=== PATIENT | female | born 2000 | race Caucasian/White ===

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

== ENCOUNTER 2018-02-26 09:27 | Emergency (ER) | payer OTHER ==
[~2018-02-26] VITALS: Wt 60.8 kg
[~2018-02-26 09:27] MED LIST changes: +NAPROSYN500 MG PO
[2018-02-26] MEDS ORDERED: CLARITIN10 MG PO (09:42)
[2018-02-26] MEDS ORDERED: FLONASE ALLERG9.9 ML NAS (09:42)
[2018-02-26] MEDS ORDERED: PREDNISONE10 MG PO (09:42)
[2018-02-26 10:20] VITALS: BP 120/68
== END 2018-02-26 10:21 | disposition home or self-care (01) ==
LOC: ED 09:27
DX: B34.9 Viral infection, unspecified (principal); H92.03 Otalgia, bilateral; K08.89 Other specified disorders of teeth and supporting structures; R11.2 Nausea with vomiting, unspecified

== ENCOUNTER 2018-03-02 20:02 | Emergency (ER) | payer OTHER ==
[~2018-03-02] VITALS: Ht 152.4 cm; Wt 54.4 kg
[~2018-03-02 20:02] MED LIST changes: +CLARITIN10 MG PO; +FLONASE ALLERG9.9 ML NAS; +PREDNISONE10 MG PO
[2018-03-02 20:18] VITALS: BP 121/78
[2018-03-02 20:36] LABS: BILIRUBIN NEGATIVE (NEGATIVE); BLOOD NEGATIVE (NEGATIVE); CLARITY SL CLOUDY (CLEAR); COLOR YELLOW (YELLOW); GLUCOSE NEGATIVE (NEGATIVE); KETONE NEGATIVE (NEGATIVE); LEUKO ESTERASE 1+ (NEGATIVE); NITRITE NEGATIVE (NEGATIVE); PH 5.5 (5.0-9.0); SPECIFIC GRAVITY >= 1.030 (1.005-1.030); UROBILINOGEN 0.2 E.U./dl (0.2-1.0)
[2018-03-02 20:43] LABS: BACTERIA 3+; MUCOUS TRACE; RBC 0-2 rbc/hpf (0-2)
[2018-03-02] MEDS ORDERED: AUGMENTIN 875875 MG PO (20:48)
[2018-03-02] MEDS ORDERED: MYCOLOG CREAM 115 GM T (20:49)
== END 2018-03-02 20:57 | disposition home or self-care (01) ==
LOC: ED 20:02
PROVIDERS: Nurse Practitioner Family
DX: H66.93 Otitis media, unspecified, bilateral (principal); A59.8 Trichomoniasis of other sites; F17.200 Nicotine dependence, unspecified, uncomplicated; Z79.899 Other long term (current) drug therapy

== ENCOUNTER 2018-07-01 18:03 | Emergency (ER) | payer OTHER ==
[~2018-07-01] VITALS: Ht 157.4 cm; Wt 61.2 kg
--- NOTE | ~2018-07-01 | EKG ---
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
[~2018-07-01 18:03] MED LIST changes: +AUGMENTIN 875875 MG PO; +MYCOLOG CREAM 115 GM T
[2018-07-01 18:56] LABS: BASO # 0.1 10*3/uL (0.0-0.1); BASO % 0.7 % (0.0-1.0); EOS # 0.1 10*3/uL (0.0-0.4); EOS % 1.9 % (1.0-4.0); HEMATOCRIT 39.7 % (37.0-47.0); HEMOGLOBIN 12.9 g/dl (12.0-16.0); LYMPH # 1.9 10*3/uL (1.3-4.4); LYMPH % 28.2 % (27.0-41.0); MEAN CELL VOLUME 86.5 fl (81.0-99.0); MEAN CORPUSCULAR HGB 28.1 pg (27.0-31.0); MEAN CORPUSCULAR HGB CONC 32.5 g/dl (33.0-37.0); MEAN PLATELET VOLUME 10.1 fl (9.6-12.3); MONO # 0.5 10*3/uL (0.1-1.0); MONO % 6.8 % (3.0-9.0); NEUT # 4.3 10*3/uL (2.3-7.9); NEUT % 62.1 % (47.0-73.0); PLATELET COUNT AUTOMATED 359 10*3/uL (130-400); RED BLOOD COUNT 4.59 10*6/uL (4.10-5.10); RED CELL DISTRI WIDTH 13.9 % (0-14.5); WHITE BLOOD COUNT 6.9 10*3/uL (4.8-10.8)
[2018-07-01 19:12] LABS: ALBUMIN 4.1 gm/dl (3.1-4.5); ALKALINE PHOSPHATASE 65 U/L (45-117); BUN 12 mg/dl (7-24); CHLORIDE 110 mmol/L (98-107); CREATININE 0.74 mg/dL (0.55-1.02); POTASSIUM 3.8 mmol/L (3.5-5.1); SGOT/AST 8 IU/L (3-35); SGPT/ALT 16 U/L (12-78); SODIUM 141 mmol/L (136-145); TOTAL PROTEIN 7.7 gm/dL (6.4-8.2)
[2018-07-01 19:33] LABS: BILIRUBIN 1+ (NEGATIVE); BLOOD 3+ (NEGATIVE); CLARITY CLOUDY (CLEAR); COLOR RED (YELLOW); GLUCOSE NEGATIVE (NEGATIVE); KETONE TRACE (NEGATIVE); NITRITE NEGATIVE (NEGATIVE); PH 5.5 (5.0-9.0); SPECIFIC GRAVITY 1.025 (1.005-1.030); UROBILINOGEN 0.2 E.U./dl (0.2-1.0)
[2018-07-01 19:48] LABS: LEUKO ESTERASE TRACE (NEGATIVE); RBC TNTC rbc/hpf (0-2)
[2018-07-01 20:00] VITALS: BP 104/62
[2018-07-01] MEDS ORDERED: Motrin,Rufen800 MG PO (21:29)
== END 2018-07-01 21:31 | disposition home or self-care (01) ==
LOC: ED 18:03
PROVIDERS: Emergency Medicine
DX: S30.1XXA Contusion of abdominal wall, initial encounter (principal); S05.10XA Contusion of eyeball and orbital tissues, unspecified eye, initial encounter; R55 Syncope and collapse; F17.200 Nicotine dependence, unspecified, uncomplicated; Z79.899 Other long term (current) drug therapy; Y04.0XXA Assault by unarmed brawl or fight, initial encounter; Y93.89 Activity, other specified; Y92.89 Other specified places as the place of occurrence of the external cause; Y99.9 Unspecified external cause status

== ENCOUNTER 2018-08-16 05:14 | Emergency (ER) | payer OTHER ==
[~2018-08-16] VITALS: Ht 157.4 cm; Wt 60.8 kg
--- NOTE | ~2018-08-16 | EKG ---
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
[~2018-08-16 05:14] MED LIST changes: +Motrin,Rufen800 MG PO
[2018-08-16 05:35] LABS: BASO % 0.5 % (0.0-1.0); EOS # 0.3 10*3/uL (0.0-0.4); EOS % 3.5 % (1.0-4.0); HEMATOCRIT 40.5 % (37.0-47.0); HEMOGLOBIN 12.9 g/dl (12.0-16.0); LYMPH # 2.2 10*3/uL (1.3-4.4); LYMPH % 25.5 % (27.0-41.0); MEAN CELL VOLUME 87.1 fl (81.0-99.0); MEAN CORPUSCULAR HGB 27.7 pg (27.0-31.0); MEAN CORPUSCULAR HGB CONC 31.9 g/dl (33.0-37.0); MEAN PLATELET VOLUME 9.5 fl (9.6-12.3); MONO # 0.6 10*3/uL (0.1-1.0); MONO % 6.9 % (3.0-9.0); NEUT # 5.4 10*3/uL (2.3-7.9); NEUT % 63.2 % (47.0-73.0); PLATELET COUNT AUTOMATED 418 10*3/uL (130-400); RED BLOOD COUNT 4.65 10*6/uL (4.10-5.10); RED CELL DISTRI WIDTH 13.7 % (0-14.5); WHITE BLOOD COUNT 8.6 10*3/uL (4.8-10.8)
[2018-08-16 05:43] LABS: ACT PARTIAL THROMBO TIME 24.7 SECONDS (20.8-31.5); INTERNATIONAL NORM RATIO 1.1 (2.0-3.5)
[2018-08-16 06:00] LABS: ALBUMIN 3.7 gm/dl (3.1-4.5); ALKALINE PHOSPHATASE 72 U/L (45-117); BUN 11 mg/dl (7-24); CHLORIDE 110 mmol/L (98-107); CREATININE 0.69 mg/dL (0.55-1.02); POTASSIUM 3.5 mmol/L (3.5-5.1); SGOT/AST 7 IU/L (3-35); SGPT/ALT 19 U/L (12-78); SODIUM 141 mmol/L (136-145); TOTAL PROTEIN 7.7 gm/dL (6.4-8.2)
[2018-08-16 06:03] LABS: TROPONIN I < 0.015 ng/ml (<0.045)
[2018-08-16 06:24] VITALS: BP 124/60
[2018-08-16] MEDS ORDERED: NAPROSYN500 MG PO (06:31)
[2018-08-16] MEDS ORDERED: CYCLOBENZAPRINE10 MG PO (06:31)
[2018-10-18] MEDS ORDERED: ZYRTEC10 MG PO (19:54)
[2018-10-18] MEDS ORDERED: AMOXICILLIN500 M2 PO (19:54)
[2018-10-18] MEDS ORDERED: FLONASE ALLERG9.9 ML NAS (19:54)
== END 2018-08-16 06:45 | disposition home or self-care (01) ==
LOC: ED 05:14
PROVIDERS: Student in an Organized Health Care Education/Training Program
DX: R07.89 Other chest pain (principal); M54.5 Low back pain; F17.200 Nicotine dependence, unspecified, uncomplicated

== ENCOUNTER 2018-09-22 02:11 | Emergency (ER) | payer OTHER ==
[~2018-09-22] VITALS: Ht 157.4 cm; Wt 61.2 kg
[~2018-09-22 02:11] MED LIST changes: +CYCLOBENZAPRINE10 MG PO
[2018-09-22 02:18] VITALS: BP 106/46
[2018-09-22 02:41] LABS: BASO # 0.1 10*3/uL (0.0-0.1); BASO % 0.8 % (0.0-1.0); EOS # 0.5 10*3/uL (0.0-0.4); EOS % 5.4 % (1.0-4.0); HEMATOCRIT 43.4 % (37.0-47.0); HEMOGLOBIN 14.3 g/dl (12.0-16.0); LYMPH # 2.6 10*3/uL (1.3-4.4); LYMPH % 27.3 % (27.0-41.0); MEAN CELL VOLUME 86.6 fl (81.0-99.0); MEAN CORPUSCULAR HGB 28.5 pg (27.0-31.0); MEAN CORPUSCULAR HGB CONC 32.9 g/dl (33.0-37.0); MEAN PLATELET VOLUME 9.7 fl (9.6-12.3); MONO # 0.5 10*3/uL (0.1-1.0); MONO % 5.3 % (3.0-9.0); NEUT # 5.9 10*3/uL (2.3-7.9); PLATELET COUNT AUTOMATED 392 10*3/uL (130-400); RED BLOOD COUNT 5.01 10*6/uL (4.10-5.10); RED CELL DISTRI WIDTH 13.3 % (0-14.5); WHITE BLOOD COUNT 9.7 10*3/uL (4.8-10.8)
[2018-09-22 02:46] LABS: BILIRUBIN NEGATIVE (NEGATIVE); BLOOD 2+ (NEGATIVE); CLARITY CLOUDY (CLEAR); COLOR YELLOW (YELLOW); GLUCOSE NEGATIVE (NEGATIVE); KETONE NEGATIVE (NEGATIVE); LEUKO ESTERASE 1+ (NEGATIVE); NITRITE NEGATIVE (NEGATIVE); PH 6.5 (5.0-9.0); UROBILINOGEN 0.2 E.U./dl (0.2-1.0)
[2018-09-22 02:55] LABS: EPITHELIAL CELLS 45-50
[2018-09-22 02:56] LABS: ALBUMIN 4.2 gm/dl (3.1-4.5); ALKALINE PHOSPHATASE 68 U/L (45-117); BUN 18 mg/dl (7-24); CHLORIDE 107 mmol/L (98-107); CREATININE 0.81 mg/dL (0.55-1.02); LIPASE 100 U/L (73-393); POTASSIUM 3.8 mmol/L (3.5-5.1); SGOT/AST 12 IU/L (3-35); SGPT/ALT 21 U/L (12-78); SODIUM 137 mmol/L (136-145); TOTAL PROTEIN 8.2 gm/dL (6.4-8.2)
[2018-09-22 02:56] LABS: BACTERIA TRACE; RBC 41-50 rbc/hpf (0-2); WBC 21-30 wbc/hpf (0-5)
[2018-09-22 02:58] LABS: B-hCG (QUALITATIVE) NEGATIVE (NEGATIVE)
[2018-09-22] MEDS ORDERED: KEFLEX500 M1 PO (03:39)
[2018-09-22] MEDS ORDERED: PYRIDIUM200 M1 PO (03:39)
[2018-09-22] MEDS ORDERED: DIFLUCAN150 MG PO (03:39)
[2018-10-18] MEDS ORDERED: ZYRTEC10 MG PO (19:54)
[2018-10-18] MEDS ORDERED: FLONASE ALLERG9.9 ML NAS (19:54)
[2018-10-18] MEDS ORDERED: AMOXICILLIN500 M2 PO (19:54)
== END 2018-09-22 03:57 | disposition home or self-care (01) ==
LOC: ED 02:11
PROVIDERS: Emergency Medicine Emergency Medical Services
DX: N30.90 Cystitis, unspecified without hematuria (principal); R30.0 Dysuria; F17.200 Nicotine dependence, unspecified, uncomplicated

== ENCOUNTER 2018-11-27 22:29 | Emergency (ER) | payer OTHER ==
[~2018-11-27] VITALS: Ht 157.4 cm; Wt 61.2 kg
--- NOTE | ~2018-11-27 | EKG ---
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
[~2018-11-27 22:29] MED LIST changes: +AMOXICILLIN500 M2 PO; +DIFLUCAN150 MG PO; +KEFLEX500 M1 PO; +PYRIDIUM200 M1 PO; +ZYRTEC10 MG PO
[2018-11-27 23:01] VITALS: BP 109/67
== END 2018-11-28 00:27 | disposition home or self-care (01) ==
LOC: ED 22:29
DX: F41.1 Generalized anxiety disorder (principal); R07.89 Other chest pain; F32.9 Major depressive disorder, single episode, unspecified; F17.200 Nicotine dependence, unspecified, uncomplicated; Z79.899 Other long term (current) drug therapy; Z79.2 Long term (current) use of antibiotics

== ENCOUNTER 2018-12-05 19:15 | Emergency (ER) | payer OTHER ==
[~2018-12-05] VITALS: Ht 154.9 cm; Wt 61.2 kg
[2018-12-05 19:19] VITALS: BP 119/73
== END 2018-12-05 20:04 | disposition left against medical advice (07) ==
LOC: ED 19:15
DX: R10.30 Lower abdominal pain, unspecified (principal); M25.572 Pain in left ankle and joints of left foot; Z53.21 Procedure and treatment not carried out due to patient leaving prior to being seen by health care provider; W01.0XXA Fall on same level from slipping, tripping and stumbling without subsequent striking against object, initial encounter; Y93.01 Activity, walking, marching and hiking; Y92.89 Other specified places as the place of occurrence of the external cause; Y99.8 Other external cause status

== ENCOUNTER 2018-12-18 22:43 | Emergency (ER) | payer OTHER ==
[~2018-12-18] VITALS: Ht 157.4 cm; Wt 56.2 kg
[2018-12-18 22:44] VITALS: BP 103/60
[2018-12-18 23:33] LABS: BILIRUBIN 1+ (NEGATIVE); BLOOD NEGATIVE (NEGATIVE); CLARITY SL CLOUDY (CLEAR); COLOR YELLOW (YELLOW); GLUCOSE NEGATIVE (NEGATIVE); KETONE TRACE (NEGATIVE); LEUKO ESTERASE NEGATIVE (NEGATIVE); NITRITE NEGATIVE (NEGATIVE); SPECIFIC GRAVITY >= 1.030 (1.005-1.030); UROBILINOGEN 0.2 E.U./dl (0.2-1.0)
[2018-12-18 23:38] LABS: EPITHELIAL CELLS 15-20
== END 2018-12-19 03:02 | disposition home or self-care (01) ==
LOC: ED 22:43
PROVIDERS: Nurse Practitioner Family
DX: S30.0XXA Contusion of lower back and pelvis, initial encounter (principal); S40.812A Abrasion of left upper arm, initial encounter; S40.811A Abrasion of right upper arm, initial encounter; Y08.89XA Assault by other specified means, initial encounter; Y93.89 Activity, other specified; Y92.89 Other specified places as the place of occurrence of the external cause; Y99.8 Other external cause status

== ENCOUNTER 2019-05-23 20:26 | Emergency (ER) | payer OTHER ==
[~2019-05-23] VITALS: Ht 154.9 cm; Wt 55.8 kg
[2019-05-23 20:28] VITALS: BP 125/73
[2019-05-23 21:12] LABS: BASO % 0.3 % (0.0-1.0); EOS # 0.3 10*3/uL (0.0-0.4); EOS % 1.7 % (1.0-4.0); HEMATOCRIT 46.8 % (37.0-47.0); HEMOGLOBIN 15.2 g/dl (12.0-16.0); LYMPH # 2.6 10*3/uL (1.3-4.4); LYMPH % 17.5 % (27.0-41.0); MEAN CORPUSCULAR HGB 28.9 pg (27.0-31.0); MEAN CORPUSCULAR HGB CONC 32.5 g/dl (33.0-37.0); MEAN PLATELET VOLUME 9.7 fl (9.6-12.3); MONO # 0.8 10*3/uL (0.1-1.0); MONO % 5.4 % (3.0-9.0); NEUT # 11.1 10*3/uL (2.3-7.9); NEUT % 74.8 % (47.0-73.0); PLATELET COUNT AUTOMATED 441 10*3/uL (130-400); RED BLOOD COUNT 5.26 10*6/uL (4.10-5.10); RED CELL DISTRI WIDTH 13.9 % (0-14.5); WHITE BLOOD COUNT 14.9 10*3/uL (4.8-10.8)
[2019-05-23 21:13] LABS: BILIRUBIN 1+ (NEGATIVE); BLOOD 3+ (NEGATIVE); CLARITY SL CLOUDY (CLEAR); COLOR YELLOW (YELLOW); GLUCOSE NEGATIVE (NEGATIVE); KETONE TRACE (NEGATIVE); LEUKO ESTERASE NEGATIVE (NEGATIVE); NITRITE NEGATIVE (NEGATIVE); SPECIFIC GRAVITY >= 1.030 (1.005-1.030); UROBILINOGEN 0.2 E.U./dl (0.2-1.0)
[2019-05-23 21:19] LABS: BACTERIA TRACE; MUCOUS TRACE; RBC 16-20 rbc/hpf (0-2); WBC 0-2 wbc/hpf (0-5)
[2019-05-23 21:30] LABS: ALBUMIN 4.4 gm/dl (3.1-4.5); ALKALINE PHOSPHATASE 82 U/L (45-117); BUN 14 mg/dl (7-24); CHLORIDE 106 mmol/L (98-107); CREATININE 0.72 mg/dL (0.55-1.02); POTASSIUM 3.5 mmol/L (3.5-5.1); SGOT/AST 14 IU/L (3-35); SGPT/ALT 25 U/L (12-78); SODIUM 139 mmol/L (136-145)
== END 2019-05-23 22:01 ==
LOC: ED 20:26
PROVIDERS: Emergency Medicine
DX: N92.0 Excessive and frequent menstruation with regular cycle (principal); F17.200 Nicotine dependence, unspecified, uncomplicated

== ENCOUNTER 2019-06-08 02:20 | Inpatient (IN) | payer OTHER ==
[2019-06-08] VITALS (8 sets, daily range): BP systolic 102–116; BP diastolic 52–69
[~2019-06-08] VITALS: Ht 157.4 cm; Wt 58.1 kg
[2019-06-08 02:57] LABS: BASO # 0.1 10*3/uL (0.0-0.1); BASO % 0.3 % (0.0-1.0); EOS # 0.3 10*3/uL (0.0-0.4); EOS % 1.7 % (1.0-4.0); HEMATOCRIT 39.5 % (37.0-47.0); HEMOGLOBIN 12.6 g/dl (12.0-16.0); LYMPH # 1.7 10*3/uL (1.3-4.4); LYMPH % 11.5 % (27.0-41.0); MEAN CELL VOLUME 90.2 fl (81.0-99.0); MEAN CORPUSCULAR HGB 28.8 pg (27.0-31.0); MEAN CORPUSCULAR HGB CONC 31.9 g/dl (33.0-37.0); MEAN PLATELET VOLUME 9.5 fl (9.6-12.3); MONO # 1.2 10*3/uL (0.1-1.0); MONO % 7.9 % (3.0-9.0); NEUT # 11.4 10*3/uL (2.3-7.9); NEUT % 78.1 % (47.0-73.0); PLATELET COUNT AUTOMATED 341 10*3/uL (130-400); RED BLOOD COUNT 4.38 10*6/uL (4.10-5.10); RED CELL DISTRI WIDTH 13.8 % (0-14.5); WHITE BLOOD COUNT 14.6 10*3/uL (4.8-10.8)
[2019-06-08 03:13] LABS: ALBUMIN 3.7 gm/dl (3.1-4.5); ALKALINE PHOSPHATASE 72 U/L (45-117); BUN 11 mg/dl (7-24); CHLORIDE 105 mmol/L (98-107); CREATININE 0.83 mg/dL (0.55-1.02); LIPASE 63 U/L (73-393); POTASSIUM 3.6 mmol/L (3.5-5.1); SGOT/AST 14 IU/L (3-35); SGPT/ALT 24 U/L (12-78); SODIUM 137 mmol/L (136-145); TOTAL PROTEIN 7.7 gm/dL (6.4-8.2)
[2019-06-08 03:17] LABS: BETA-HCG, QUANT < 1.0 mIU/mL (1-3)
[2019-06-08 03:22] LABS: BILIRUBIN NEGATIVE (NEGATIVE); BLOOD 2+ (NEGATIVE); CLARITY SL CLOUDY (CLEAR); COLOR YELLOW (YELLOW); GLUCOSE NEGATIVE (NEGATIVE); KETONE NEGATIVE (NEGATIVE); LEUKO ESTERASE 2+ (NEGATIVE); NITRITE NEGATIVE (NEGATIVE); SPECIFIC GRAVITY 1.015 (1.005-1.030); UROBILINOGEN 0.2 E.U./dl (0.2-1.0)
[2019-06-08 03:49] LABS: BACTERIA 1+; RBC 31-40 rbc/hpf (0-2); WBC 41-50 wbc/hpf (0-5)
--- NOTE | 2019-06-08 06:01 | NUR ---
A 19, admitted to , under the services of ALISON Meyers DO with a diagnosis of UTI. Chief complaint is LLQ PAIN. Patient arrived via wheel chair from ER. Monitor applied. Initial assessment completed. Vital signs taken and recorded. ALISON MEYERS DO notified of admission to the unit. Orders received. See assessment for past medical history, medications and allergies. Patient and/or family oriented to unit. [facility]. Clothing/patient valuable form completed. SHIRA SOW
--- NOTE | 2019-06-08 06:11 | NUR ---
PATIENT RESTING CALMLY IN BED PLAYING ON CELLPHONE. DENIES ANY HOME MEDICATIONS. HAD TO REPEAT QUESTIONS MULTIPLE TIMES TO PATIENT DUE TO PLAYING ON CELLPHONE. NO S/S OF PAIN.
--- NOTE | 2019-06-08 06:26 | NUR ---
MEDICATED WITH PRN NORCO FOR C/O ABD PAIN. STATES "IF I DO NOT GET PAIN MEDS SOON I WILL START SCREAMING". RATES PAIN 6/10 ON A 0/10 PAIN SCALE
--- NOTE | 2019-06-08 08:44 | NUR ---
PT RESTING IN BED. EYES CLOSED. NO DISTRESS NOTED. WILL MONITOR
--- NOTE | 2019-06-08 11:24 | NUR ---
[employer] in to talk to patient. Patient states lives at home with family. There are few steps in the home. Physician: none Pharmacy: [facility] Home health services: none Patient's level of ADLs: INDEPENDENT Patient has working utilities: all working DME: none Follow-up physician's appointment after d/c: will be made by hospitalist nurse director upon discharge Does patient want to access PORTAL?: no Discharge plan discussed with patient, friend present, patient lives at home, is independent in adls and ambualtion, patient states she will be going home when able and denies any home needs. CASH ADAIR
--- NOTE | 2019-06-08 11:51 | NUR ---
PT REQUESTED AND GIVEN NORCO FOR C.O LEFT SIDE ABD PAIN. PT RATES PAIN 06/08 WILL MONITOR
--- NOTE | 2019-06-08 19:40 | NUR ---
PATIENT REQUESTED AND WAS MEDICATED WITH NORCO PER PRN ORDER FOR C/O ABDOMINAL PAIN. RATED PAIN A 10/10 WITH 10 BEING THE WORST. SEE EMAR. REINFORCED USE OF CALL LIGHT.
--- NOTE | 2019-06-08 21:00 | NUR ---
PATIENT STATING SHE WANTS TO SIGN OUT AMA. DR. TINAJERO CALLED. WILL COME UP TO SPEAK TO PATIENT. NORCO GIVEN EARLIER EFFECTIVE FOR PAIN.
--- NOTE | 2019-06-08 21:15 | NUR ---
DR. TINAJERO CAME TO FLOOR TO SPEAK TO PATIENT. STATED SHE IS AWARE THAT SHE IS SIGNING OUT OUT AMA. PERCY REMOVED.
--- NOTE | 2019-06-08 21:30 | NUR ---
PATIENT SIGNED OUT AMA. AMBULATED OFF FLOOR WITH FRIEND
== END 2019-06-08 21:30 | disposition left against medical advice (07) | DRG 872 ==
LOC: ED 02:20 → EDHOLD 05:24 → 4E 05:53
PROVIDERS: Emergency Medicine Emergency Medical Services; ADMIT Emergency Medicine
DX: A41.9 Sepsis, unspecified organism (principal); N30.01 Acute cystitis with hematuria; R10.12 Left upper quadrant pain; R73.9 Hyperglycemia, unspecified; F41.1 Generalized anxiety disorder; Z53.21 Procedure and treatment not carried out due to patient leaving prior to being seen by health care provider; F17.200 Nicotine dependence, unspecified, uncomplicated; Z79.899 Other long term (current) drug therapy

== ENCOUNTER 2019-08-04 15:22 | Emergency (ER) | payer OTHER ==
[~2019-08-04] VITALS: Ht 154.9 cm; Wt 54.4 kg
[2019-08-04 15:26] VITALS: BP 107/71
[2019-08-04 16:59] LABS: BASO % 0.5 % (0.0-1.0); EOS # 0.3 10*3/uL (0.0-0.4); EOS % 3.2 % (1.0-4.0); HEMATOCRIT 40.4 % (37.0-47.0); HEMOGLOBIN 13.1 g/dl (12.0-16.0); LYMPH # 2.2 10*3/uL (1.3-4.4); LYMPH % 26.1 % (27.0-41.0); MEAN CORPUSCULAR HGB 29.2 pg (27.0-31.0); MEAN CORPUSCULAR HGB CONC 32.4 g/dl (33.0-37.0); MEAN PLATELET VOLUME 9.7 fl (9.6-12.3); MONO # 0.5 10*3/uL (0.1-1.0); MONO % 5.6 % (3.0-9.0); NEUT # 5.5 10*3/uL (2.3-7.9); NEUT % 64.2 % (47.0-73.0); PLATELET COUNT AUTOMATED 365 10*3/uL (130-400); RED BLOOD COUNT 4.49 10*6/uL (4.10-5.10); RED CELL DISTRI WIDTH 14.3 % (0-14.5); WHITE BLOOD COUNT 8.6 10*3/uL (4.8-10.8)
[2019-08-04 17:10] LABS: BILIRUBIN NEGATIVE (NEGATIVE); BLOOD NEGATIVE (NEGATIVE); CLARITY SL CLOUDY (CLEAR); COLOR YELLOW (YELLOW); GLUCOSE NEGATIVE (NEGATIVE); KETONE NEGATIVE (NEGATIVE); LEUKO ESTERASE 2+ (NEGATIVE); NITRITE NEGATIVE (NEGATIVE); SPECIFIC GRAVITY 1.025 (1.005-1.030); UROBILINOGEN 0.2 E.U./dl (0.2-1.0)
[2019-08-04 17:18] LABS: ALBUMIN 3.9 gm/dl (3.1-4.5); ALKALINE PHOSPHATASE 68 U/L (45-117); BUN 11 mg/dl (7-24); CHLORIDE 108 mmol/L (98-107); CREATININE 0.63 mg/dL (0.55-1.02); LIPASE 65 U/L (73-393); SGOT/AST 12 IU/L (3-35); SGPT/ALT 18 U/L (12-78); SODIUM 137 mmol/L (136-145); TOTAL PROTEIN 7.7 gm/dL (6.4-8.2)
[2019-08-04 17:24] LABS: BACTERIA 1+; MUCOUS 2+
[2019-08-04] MEDS ORDERED: PRILOSEC20 M1 PO (19:17)
== END 2019-08-04 19:45 | disposition home or self-care (01) ==
LOC: ED 15:22
PROVIDERS: Nurse Practitioner Family
DX: K29.70 Gastritis, unspecified, without bleeding (principal); F17.200 Nicotine dependence, unspecified, uncomplicated

== ENCOUNTER 2019-08-18 14:57 | Emergency (ER) | payer OTHER ==
[2019-08-18 14:57] VITALS: BP 127/100
[~2019-08-18 14:57] MED LIST changes: +PRILOSEC20 M1 PO
[2019-08-18 15:20] LABS: BILIRUBIN NEGATIVE (NEGATIVE); BLOOD NEGATIVE (NEGATIVE); CLARITY SL CLOUDY (CLEAR); COLOR YELLOW (YELLOW); GLUCOSE NEGATIVE (NEGATIVE); KETONE NEGATIVE (NEGATIVE); LEUKO ESTERASE 2+ (NEGATIVE); NITRITE NEGATIVE (NEGATIVE); PH 5.5 (5.0-9.0); SPECIFIC GRAVITY 1.025 (1.005-1.030); UROBILINOGEN 0.2 E.U./dl (0.2-1.0)
[2019-08-18 15:51] LABS: BACTERIA 3+; EPITHELIAL CELLS 20-30
[2019-08-18 15:55] LABS: BASO # 0.1 10*3/uL (0.0-0.1); BASO % 0.9 % (0.0-1.0); EOS # 0.3 10*3/uL (0.0-0.4); EOS % 3.5 % (1.0-4.0); HEMATOCRIT 42.9 % (37.0-47.0); HEMOGLOBIN 14.1 g/dl (12.0-16.0); LYMPH # 2.3 10*3/uL (1.3-4.4); LYMPH % 32.3 % (27.0-41.0); MEAN CELL VOLUME 89.2 fl (81.0-99.0); MEAN CORPUSCULAR HGB 29.3 pg (27.0-31.0); MEAN CORPUSCULAR HGB CONC 32.9 g/dl (33.0-37.0); MEAN PLATELET VOLUME 9.9 fl (9.6-12.3); MONO # 0.5 10*3/uL (0.1-1.0); MONO % 6.8 % (3.0-9.0); NEUT % 56.1 % (47.0-73.0); PLATELET COUNT AUTOMATED 380 10*3/uL (130-400); RED BLOOD COUNT 4.81 10*6/uL (4.10-5.10); RED CELL DISTRI WIDTH 13.8 % (0-14.5); WHITE BLOOD COUNT 7.1 10*3/uL (4.8-10.8)
[2019-08-18 16:16] LABS: ALBUMIN 4.2 gm/dl (3.1-4.5); ALKALINE PHOSPHATASE 65 U/L (45-117); BUN 16 mg/dl (7-24); CHLORIDE 106 mmol/L (98-107); CREATININE 0.67 mg/dL (0.55-1.02); POTASSIUM 3.6 mmol/L (3.5-5.1); SGOT/AST 9 IU/L (3-35); SGPT/ALT 18 U/L (12-78); SODIUM 135 mmol/L (136-145); TOTAL PROTEIN 8.3 gm/dL (6.4-8.2)
[2019-08-18] MEDS ORDERED: DOXYCYCLINE100 M3 PO (18:10)
== END 2019-08-18 18:39 | disposition home or self-care (01) ==
LOC: ED 14:57
PROVIDERS: Physician Assistant
DX: K52.9 Noninfective gastroenteritis and colitis, unspecified (principal); N39.0 Urinary tract infection, site not specified

== ENCOUNTER 2020-07-15 15:57 | Emergency (ER) | payer OTHER ==
[~2020-07-15] VITALS: Wt 56.7 kg
[~2020-07-15 15:57] MED LIST changes: +DOXYCYCLINE100 M3 PO
[2020-07-15 16:02] VITALS: BP 112/66
[2020-07-15 16:33] LABS: BILIRUBIN NEGATIVE (NEGATIVE); CLARITY CLEAR (CLEAR); COLOR YELLOW (YELLOW); GLUCOSE NEGATIVE (NEGATIVE); KETONE NEGATIVE (NEGATIVE)
[2020-07-15 16:34] LABS: BLOOD NEGATIVE (NEGATIVE); LEUKO ESTERASE 1+ (NEGATIVE); NITRITE NEGATIVE (NEGATIVE); UROBILINOGEN 0.2 E.U./dl (0.2-1.0)
[2020-07-15 16:38] LABS: BACTERIA 1+; RBC 0-2 rbc/hpf (0-2); WBC 16-20 wbc/hpf (0-5)
[2020-07-15] MEDS ORDERED: MACROBID100 M1 PO (18:15)
[2020-07-15] MEDS ORDERED: PRENATAL TABLE1 EAC2 PO (18:15)
== END 2020-07-15 19:11 | disposition home or self-care (01) ==
LOC: ED 15:57
PROVIDERS: Emergency Medicine
DX: O23.91 Unspecified genitourinary tract infection in pregnancy, first trimester (principal); Z3A.01 Less than 8 weeks gestation of pregnancy

== ENCOUNTER → 2020-09-03 | Outpatient (CLI) | payer OTHER ==
[~2020-09-03] MED LIST changes: +PRENATAL TABLE1 EAC2 PO
[2020-09-04 14:08] LABS: ANTICARDIOLIPIN AB, IGG, QN <9 GPL U/mL (0-14); ANTICARDIOLIPIN AB, IGM, QN 12 MPL U/mL (0-12)
[2020-09-05 06:07] LABS: ANTI-THROMBIN III ACTIVITY 104 % (75-135); PROTEIN C, ACTIVITY 98 % (73-180); PROTEIN S - FUNCTIONAL 30 % (63-140)
== END | disposition home or self-care (01) ==
LOC: LAB 13:48
PROVIDERS: ATTEND Nurse Practitioner Women's Health
DX: O26.22 Pregnancy care for patient with recurrent pregnancy loss, second trimester (principal); Z3A.13 13 weeks gestation of pregnancy

== ENCOUNTER 2020-09-24 18:19 | Emergency (ER) | payer OTHER ==
[~2020-09-24] VITALS: Ht 154.9 cm; Wt 56.7 kg
[2020-09-24 18:44] VITALS: BP 108/61
== END 2020-09-24 21:00 | disposition home or self-care (01) ==
LOC: ED 18:19
DX: B34.9 Viral infection, unspecified (principal); Z87.891 Personal history of nicotine dependence

== ENCOUNTER 2020-09-27 20:01 | Emergency (ER) | payer OTHER ==
[~2020-09-27] VITALS: Ht 154.9 cm; Wt 56.7 kg
[2020-09-27 20:21] VITALS: BP 107/68
== END 2020-09-27 21:50 ==
LOC: ED 20:01
DX: J00 Acute nasopharyngitis [common cold] (principal); Z53.21 Procedure and treatment not carried out due to patient leaving prior to being seen by health care provider

== ENCOUNTER 2020-10-13 18:27 | Emergency (ER) | payer OTHER ==
[~2020-10-13] VITALS: Ht 154.9 cm; Wt 57.6 kg
[2020-10-13 18:32] VITALS: BP 107/64
[2020-10-13 18:54] LABS: BASO # 0.1 10*3/uL (0.0-0.1); BASO % 0.5 % (0.0-1.0); EOS # 0.1 10*3/uL (0.0-0.4); EOS % 1.3 % (1.0-4.0); LYMPH # 2.2 10*3/uL (1.3-4.4); LYMPH % 19.9 % (27.0-41.0); MEAN CELL VOLUME 91.2 fl (81.0-99.0); MEAN CORPUSCULAR HGB 30.7 pg (27.0-31.0); MEAN CORPUSCULAR HGB CONC 33.6 g/dl (33.0-37.0); MONO # 0.6 10*3/uL (0.1-1.0); MONO % 5.2 % (3.0-9.0); NEUT # 7.8 10*3/uL (2.3-7.9); NEUT % 71.2 % (47.0-73.0); PLATELET COUNT AUTOMATED 363 10*3/uL (130-400); RED BLOOD COUNT 3.62 10*6/uL (4.10-5.10); RED CELL DISTRI WIDTH 13.1 % (0-14.5); WHITE BLOOD COUNT 10.9 10*3/uL (4.8-10.8)
[2020-10-13 19:10] LABS: ALKALINE PHOSPHATASE 58 U/L (45-117); BUN 11 mg/dl (7-24); CHLORIDE 110 mmol/L (98-107); CREATININE 0.43 mg/dL (0.55-1.02); POTASSIUM 3.5 mmol/L (3.5-5.1); SGOT/AST 12 IU/L (3-35); SGPT/ALT 15 U/L (12-78); SODIUM 139 mmol/L (136-145); TOTAL PROTEIN 7.1 gm/dL (6.4-8.2)
[2020-10-13 19:13] LABS: BILIRUBIN Negative (Negative); BLOOD Negative (Negative); CLARITY Cloudy (Clear); COLOR Yellow (Yellow); GLUCOSE Negative (Negative); KETONE Negative (Negative); LEUKO ESTERASE 2+ (Negative); NITRITE Negative (Negative); SPECIFIC GRAVITY >= 1.030 (1.001-1.030)
[2020-10-13 19:20] LABS: BACTERIA 2+; EPITHELIAL CELLS 16-20; MUCOUS 1+; WBC 41-50 wbc/hpf (0-5)
[2020-10-13] MEDS ORDERED: CEPHALEXIN500 M1 PO (19:44)
== END 2020-10-13 19:47 | disposition home or self-care (01) ==
LOC: ED 18:27
PROVIDERS: Physician Assistant
DX: O23.42 Unspecified infection of urinary tract in pregnancy, second trimester (principal); Z79.899 Other long term (current) drug therapy; Z3A.18 18 weeks gestation of pregnancy

== ENCOUNTER 2020-10-26 18:35 | Emergency (ER) | payer OTHER ==
[~2020-10-26] VITALS: Ht 160 cm; Wt 58.5 kg
[~2020-10-26 18:35] MED LIST changes: +CEPHALEXIN500 M1 PO
[2020-10-26 19:09] LABS: HEMATOCRIT 36.1 % (37.0-47.0); MEAN CELL VOLUME 92.6 fl (81.0-99.0); MEAN CORPUSCULAR HGB 30.3 pg (27.0-31.0); MEAN CORPUSCULAR HGB CONC 32.7 g/dl (33.0-37.0); MEAN PLATELET VOLUME 8.9 fl (9.6-12.3); PLATELET COUNT AUTOMATED 338 10*3/uL (130-400); RED CELL DISTRI WIDTH 13.1 % (0-14.5); WHITE BLOOD COUNT 9.9 10*3/uL (4.8-10.8)
[2020-10-26 19:22] VITALS: BP 109/64
[2020-10-26 19:24] LABS: ALBUMIN 3.1 gm/dl (3.1-4.5); ALKALINE PHOSPHATASE 64 U/L (45-117); BUN 10 mg/dl (7-24); CHLORIDE 108 mmol/L (98-107); CREATININE 0.42 mg/dL (0.55-1.02); POTASSIUM 3.8 mmol/L (3.5-5.1); SGOT/AST 13 IU/L (3-35); SGPT/ALT 18 U/L (12-78); SODIUM 136 mmol/L (136-145); TOTAL PROTEIN 7.2 gm/dL (6.4-8.2)
[2020-10-26 19:26] LABS: BILIRUBIN Negative (Negative); BLOOD Negative (Negative); CLARITY Cloudy (Clear); COLOR Yellow (Yellow); GLUCOSE Negative (Negative); KETONE Negative (Negative); LEUKO ESTERASE 2+ (Negative); NITRITE Negative (Negative); PH 6.5 (4.5-8.0); UROBILINOGEN 0.2 E.U./dl (0.0-1.0)
[2020-10-26 19:31] LABS: PLATELET SUFFICIENCY NORMAL (NORMAL); TOTAL CELLS COUNTED 100 #CELLS
[2020-10-26 19:36] LABS: EPITHELIAL CELLS TNTC
[2020-10-26 19:37] LABS: BACTERIA 1+; RBC 0-2 rbc/hpf (0-2); WBC 16-20 wbc/hpf (0-5)
[2020-10-26] MEDS ORDERED: MACROBID100 M1 PO (19:53)
== END 2020-10-26 20:01 | disposition home or self-care (01) ==
LOC: ED 18:35
PROVIDERS: Nurse Practitioner Family
DX: O23.42 Unspecified infection of urinary tract in pregnancy, second trimester (principal); Z3A.20 20 weeks gestation of pregnancy; Z79.899 Other long term (current) drug therapy

== ENCOUNTER → 2020-10-29 | Outpatient (CLI) | payer OTHER | END | disposition home or self-care (01) | LOC: US 15:26 | PROVIDERS: ATTEND Nurse Practitioner Women's Health | DX: Z34.82 Encounter for supervision of other normal pregnancy, second trimester (principal); Z33.1 Pregnant state, incidental; Z3A.20 20 weeks gestation of pregnancy ==

== ENCOUNTER 2020-12-18 21:44 | Emergency (ER) | payer OTHER ==
[~2020-12-18] VITALS: Ht 160 cm; Wt 61.2 kg
[2020-12-18 22:25] VITALS: BP 117/76
== END 2020-12-18 23:42 | disposition short-term general hospital (02) ==
LOC: ED 21:44
DX: O62.9 Abnormality of forces of labor, unspecified (principal); Z3A.28 28 weeks gestation of pregnancy

== ENCOUNTER 2020-12-31 08:58 | Emergency (ER) | payer OTHER ==
[2020-12-31 09:03] VITALS: BP 119/62
[2020-12-31 09:42] LABS: HEMATOCRIT 29.5 % (37.0-47.0); MEAN CELL VOLUME 92.2 fl (81.0-99.0); MEAN CORPUSCULAR HGB 30.6 pg (27.0-31.0); MEAN CORPUSCULAR HGB CONC 33.2 g/dl (33.0-37.0); MEAN PLATELET VOLUME 9.1 fl (9.6-12.3); PLATELET COUNT AUTOMATED 378 10*3/uL (130-400); RED CELL DISTRI WIDTH 12.8 % (0-14.5); WHITE BLOOD COUNT 13.5 10*3/uL (4.8-10.8)
[2020-12-31 09:51] LABS: BILIRUBIN Negative (Negative); BLOOD Negative (Negative); CLARITY Turbid (Clear); COLOR Dark Yellow (Yellow); GLUCOSE Negative (Negative); KETONE Trace (Negative); LEUKO ESTERASE 2+ (Negative); NITRITE Negative (Negative); SPECIFIC GRAVITY >= 1.030 (1.001-1.030)
[2020-12-31 09:55] LABS: ALBUMIN 2.6 gm/dl (3.1-4.5); ALKALINE PHOSPHATASE 111 U/L (45-117); BUN 10 mg/dl (7-24); CHLORIDE 111 mmol/L (98-107); CREATININE 0.49 mg/dL (0.55-1.02); LIPASE 81 U/L (73-393); POTASSIUM 3.1 mmol/L (3.5-5.1); SGOT/AST 9 IU/L (3-35); SGPT/ALT 16 U/L (12-78); SODIUM 139 mmol/L (136-145); TOTAL PROTEIN 6.4 gm/dL (6.4-8.2)
[2020-12-31 09:58] LABS: BACTERIA 4+; EPITHELIAL CELLS 16-20; WBC 41-50 wbc/hpf (0-5)
[2020-12-31 10:02] LABS: ATYPICAL LYMPHS 1 % (0-0); BASOPHILS 1 % (0-1); PLATELET SUFFICIENCY NORMAL (NORMAL); POLYCHROMASIA SLIGHT; TOTAL CELLS COUNTED 100 #CELLS
[2020-12-31] MEDS ORDERED: MACROBID100 M1 PO (12:36)
== END 2020-12-31 12:40 | disposition home or self-care (01) ==
LOC: ED 08:58
PROVIDERS: Emergency Medicine
DX: O23.43 Unspecified infection of urinary tract in pregnancy, third trimester (principal); O99.343 Other mental disorders complicating pregnancy, third trimester; F32.9 Major depressive disorder, single episode, unspecified; F41.9 Anxiety disorder, unspecified; Z3A.30 30 weeks gestation of pregnancy; Z79.2 Long term (current) use of antibiotics; Z79.899 Other long term (current) drug therapy; Z86.14 Personal history of Methicillin resistant Staphylococcus aureus infection

== ENCOUNTER 2021-01-06 00:13 | Emergency (ER) | payer OTHER ==
[~2021-01-06] VITALS: Ht 154.9 cm; Wt 66.2 kg
[2021-01-06 00:24] VITALS: BP 112/59
== END 2021-01-06 01:46 | disposition short-term general hospital (02) ==
LOC: ED 00:13
DX: O62.8 Other abnormalities of forces of labor (principal); O99.343 Other mental disorders complicating pregnancy, third trimester; F32.9 Major depressive disorder, single episode, unspecified; F41.9 Anxiety disorder, unspecified; O99.333 Smoking (tobacco) complicating pregnancy, third trimester; F17.200 Nicotine dependence, unspecified, uncomplicated; Z3A.30 30 weeks gestation of pregnancy; Z79.2 Long term (current) use of antibiotics; Z79.899 Other long term (current) drug therapy; Z86.14 Personal history of Methicillin resistant Staphylococcus aureus infection

== ENCOUNTER 2021-05-09 21:36 | Emergency (ER) | payer OTHER ==
[~2021-05-09] VITALS: Ht 165.1 cm; Wt 68.0 kg
[2021-05-09 21:45] VITALS: BP 118/60
[2021-05-09 22:38] LABS: BASO # 0.1 10*3/uL (0.0-0.1); BASO % 0.7 % (0.0-1.0); EOS # 0.1 10*3/uL (0.0-0.4); EOS % 1.2 % (1.0-4.0); HEMATOCRIT 39.7 % (37.0-47.0); LYMPH # 2.6 10*3/uL (1.3-4.4); LYMPH % 23.2 % (27.0-41.0); MEAN CELL VOLUME 85.9 fl (81.0-99.0); MEAN CORPUSCULAR HGB 27.7 pg (27.0-31.0); MEAN CORPUSCULAR HGB CONC 32.2 g/dl (33.0-37.0); MEAN PLATELET VOLUME 9.5 fl (9.6-12.3); MONO # 0.6 10*3/uL (0.1-1.0); NEUT # 7.8 10*3/uL (2.3-7.9); NEUT % 69.5 % (47.0-73.0); PLATELET COUNT AUTOMATED 488 10*3/uL (130-400); RED BLOOD COUNT 4.62 10*6/uL (4.10-5.10); RED CELL DISTRI WIDTH 14.7 % (0-14.5); WHITE BLOOD COUNT 11.3 10*3/uL (4.8-10.8)
[2021-05-09 22:49] LABS: BILIRUBIN Negative (Negative); BLOOD Negative (Negative); CLARITY Cloudy (Clear); COLOR Yellow (Yellow); GLUCOSE Negative (Negative); KETONE 1+ (Negative); LEUKO ESTERASE 1+ (Negative); NITRITE Negative (Negative); PH 5.5 (4.5-8.0); SPECIFIC GRAVITY 1.025 (1.001-1.030)
[2021-05-09 23:03] LABS: ALBUMIN 3.7 gm/dl (3.1-4.5); BUN 16 mg/dl (7-24); CHLORIDE 108 mmol/L (98-107); CREATININE 0.73 mg/dL (0.55-1.02); LIPASE 51 U/L (73-393); POTASSIUM 3.5 mmol/L (3.5-5.1); SGOT/AST 12 IU/L (3-35); SGPT/ALT 28 U/L (12-78); SODIUM 136 mmol/L (136-145)
[2021-05-09 23:04] LABS: ALKALINE PHOSPHATASE 70 U/L (45-117)
[2021-05-09 23:05] LABS: URINE AMPHETAMINES < 1000 (1000ng/ml); URINE BARBITURATES < 200 (200ng/ml); URINE BENZODIAZEPINES < 200 (200ng/ml); URINE CANNABINOIDS (THC) > 50 (50ng/ml); URINE COCAINE < 300 (300ng/ml); URINE METHADONE < 300 (300ng/ml); URINE OPIATES < 300 (300ng/ml)
[2021-05-09 23:08] LABS: BACTERIA 1+; MUCOUS 1+
[2021-05-09 23:10] LABS: URINE PHENCYCLIDINE < 25 (25ng/ml)
[2021-05-09] MEDS ORDERED: CEFUROXIME AXE500 MG PO (23:13)
== END 2021-05-09 23:35 | disposition home or self-care (01) ==
LOC: ED 21:36
PROVIDERS: Physician Assistant
DX: N39.0 Urinary tract infection, site not specified (principal); F17.200 Nicotine dependence, unspecified, uncomplicated; Z79.2 Long term (current) use of antibiotics; Z79.899 Other long term (current) drug therapy

== ENCOUNTER 2021-06-30 13:28 | Emergency (ER) | payer OTHER ==
[~2021-06-30] VITALS: Wt 60.3 kg
[~2021-06-30 13:28] MED LIST changes: +CEFUROXIME AXE500 MG PO
[2021-06-30 13:42] VITALS: BP 110/69
== END 2021-06-30 14:09 | disposition left against medical advice (07) ==
LOC: ED 13:28
DX: R23.4 Changes in skin texture (principal); Z53.21 Procedure and treatment not carried out due to patient leaving prior to being seen by health care provider

== ENCOUNTER 2021-08-13 21:37 | Emergency (ER) | payer OTHER | END 2021-08-13 23:02 | disposition left against medical advice (07) | LOC: ED 21:37 | DX: R51.9 Headache, unspecified (principal); J02.9 Acute pharyngitis, unspecified; Z53.21 Procedure and treatment not carried out due to patient leaving prior to being seen by health care provider ==

== ENCOUNTER 2021-10-12 11:34 | Emergency (ER) | payer OTHER ==
[~2021-10-12] VITALS: Ht 160 cm; Wt 62.6 kg
[2021-10-12 12:08] LABS: BILIRUBIN Negative (Negative); BLOOD Negative (Negative); CLARITY Clear (Clear); COLOR Yellow (Yellow); GLUCOSE Negative (Negative); KETONE Negative (Negative); LEUKO ESTERASE 1+ (Negative); NITRITE Negative (Negative); PH 7.5 (4.5-8.0); SPECIFIC GRAVITY 1.015 (1.001-1.030); UROBILINOGEN 0.2 E.U./dl (0.0-1.0)
[2021-10-12 12:20] LABS: BACTERIA 1+; CALCIUM OXALATE CRYSTALS 1+; MUCOUS 1+
[2021-10-12 15:15] VITALS: BP 109/76
== END 2021-10-12 15:19 | disposition home or self-care (01) ==
LOC: ED 11:34
PROVIDERS: Physician Assistant
DX: O26.891 Other specified pregnancy related conditions, first trimester (principal); Z3A.08 8 weeks gestation of pregnancy; F17.200 Nicotine dependence, unspecified, uncomplicated; Z91.030 Bee allergy status; Z91.040 Latex allergy status

== ENCOUNTER 2021-11-18 14:58 | Emergency (ER) | payer OTHER ==
[2021-11-18 15:05] VITALS: BP 105/51
[2021-11-18 15:42] LABS: BASO % 0.4 % (0.0-1.0); EOS # 0.1 10*3/uL (0.0-0.4); EOS % 1.2 % (1.0-4.0); HEMATOCRIT 36.7 % (37.0-47.0); LYMPH # 1.9 10*3/uL (1.3-4.4); LYMPH % 25.9 % (27.0-41.0); MEAN CELL VOLUME 85.7 fl (81.0-99.0); MEAN CORPUSCULAR HGB CONC 32.7 g/dl (33.0-37.0); MEAN PLATELET VOLUME 9.1 fl (9.6-12.3); MONO # 0.3 10*3/uL (0.1-1.0); MONO % 4.7 % (3.0-9.0); NEUT # 4.9 10*3/uL (2.3-7.9); PLATELET COUNT AUTOMATED 367 10*3/uL (130-400); RED BLOOD COUNT 4.28 10*6/uL (4.10-5.10); RED CELL DISTRI WIDTH 15.8 % (0-14.5); WHITE BLOOD COUNT 7.3 10*3/uL (4.8-10.8)
[2021-11-18 15:57] LABS: ALBUMIN 2.9 gm/dl (3.1-4.5); ALKALINE PHOSPHATASE 62 U/L (45-117); BUN 8 mg/dl (7-24); CHLORIDE 108 mmol/L (98-107); CREATININE 0.45 mg/dL (0.55-1.02); LIPASE 50 U/L (73-393); POTASSIUM 3.7 mmol/L (3.5-5.1); SGOT/AST 17 IU/L (3-35); SODIUM 136 mmol/L (136-145); TOTAL PROTEIN 7.4 gm/dL (6.4-8.2)
[2021-11-18 16:03] LABS: SGPT/ALT 18 U/L (12-78)
[2021-11-18 16:07] LABS: BILIRUBIN Negative (Negative); BLOOD Negative (Negative); CLARITY Cloudy (Clear); COLOR Yellow (Yellow); GLUCOSE Negative (Negative); KETONE Negative (Negative); LEUKO ESTERASE 2+ (Negative); NITRITE Negative (Negative); SPECIFIC GRAVITY >= 1.030 (1.001-1.030)
[2021-11-18 16:25] LABS: BACTERIA 3+; MUCOUS 2+; WBC 16-20 wbc/hpf (0-5)
[2021-11-18] MEDS ORDERED: CEPHALEXIN500 M1 PO (16:34)
== END 2021-11-18 16:49 | disposition home or self-care (01) ==
LOC: ED 14:58
PROVIDERS: Family Medicine
DX: N39.0 Urinary tract infection, site not specified (principal)

== ENCOUNTER 2022-02-01 11:34 | Emergency (ER) | payer OTHER ==
[~2022-02-01] VITALS: Ht 157.4 cm
[2022-02-01 11:39] VITALS: BP 103/60
[2022-02-01 12:06] LABS: BILIRUBIN Negative (Negative); BLOOD Negative (Negative); CLARITY Cloudy (Clear); COLOR Yellow (Yellow); GLUCOSE Negative (Negative); KETONE Negative (Negative); LEUKO ESTERASE 3+ (Negative); NITRITE Negative (Negative); PH 7.5 (4.5-8.0); UROBILINOGEN 0.2 E.U./dl (0.0-1.0)
[2022-02-01 12:32] LABS: BACTERIA 4+; EPITHELIAL CELLS 21-30; WBC 31-40 wbc/hpf (0-5)
== END 2022-02-01 12:31 | disposition home or self-care (01) ==
LOC: ED 11:34
PROVIDERS: Nurse Practitioner Family
DX: O26.892 Other specified pregnancy related conditions, second trimester (principal); Z3A.22 22 weeks gestation of pregnancy; Z87.891 Personal history of nicotine dependence; Z91.030 Bee allergy status; Z91.040 Latex allergy status

== ENCOUNTER → 2022-04-14 | Outpatient (CLI) | payer OTHER ==
[2022-04-14 13:01] LABS: HEMATOCRIT 33.2 % (37.0-47.0); MEAN CELL VOLUME 91.2 fl (81.0-99.0); MEAN CORPUSCULAR HGB 30.8 pg (27.0-31.0); MEAN CORPUSCULAR HGB CONC 33.7 g/dl (33.0-37.0); MEAN PLATELET VOLUME 9.2 fl (9.6-12.3); PLATELET COUNT AUTOMATED 338 10*3/uL (130-400); RED BLOOD COUNT 3.64 10*6/uL (4.10-5.10); RED CELL DISTRI WIDTH 13.7 % (0-14.5); WHITE BLOOD COUNT 12.5 10*3/uL (4.8-10.8)
[2022-04-14 13:02] LABS: MANUAL DIFF REFLEX YES
[2022-04-14 13:20] LABS: PLATELET SUFFICIENCY NORMAL (NORMAL); POLYCHROMASIA SLIGHT; TOTAL CELLS COUNTED 100 #CELLS
== END | disposition home or self-care (01) ==
LOC: LAB 12:43
PROVIDERS: ATTEND Obstetrics & Gynecology
DX: Z34.93 Encounter for supervision of normal pregnancy, unspecified, third trimester (principal); Z3A.32 32 weeks gestation of pregnancy

== ENCOUNTER 2022-07-21 15:48 | Emergency (ER) | payer OTHER ==
[~2022-07-21] VITALS: Wt 65.8 kg
[2022-07-21 18:28] LABS: BASO # 0.1 10*3/uL (0.0-0.1); BASO % 0.7 % (0.0-1.0); EOS # 0.2 10*3/uL (0.0-0.4); EOS % 2.2 % (1.0-4.0); HEMATOCRIT 40.3 % (37.0-47.0); LYMPH # 2.4 10*3/uL (1.3-4.4); LYMPH % 31.7 % (27.0-41.0); MEAN CELL VOLUME 86.9 fl (81.0-99.0); MEAN CORPUSCULAR HGB 29.1 pg (27.0-31.0); MEAN CORPUSCULAR HGB CONC 33.5 g/dl (33.0-37.0); MEAN PLATELET VOLUME 9.4 fl (9.6-12.3); MONO # 0.4 10*3/uL (0.1-1.0); MONO % 5.4 % (3.0-9.0); NEUT # 4.5 10*3/uL (2.3-7.9); NEUT % 59.7 % (47.0-73.0); PLATELET COUNT AUTOMATED 402 10*3/uL (130-400); RED BLOOD COUNT 4.64 10*6/uL (4.10-5.10); RED CELL DISTRI WIDTH 12.6 % (0-14.5); WHITE BLOOD COUNT 7.6 10*3/uL (4.8-10.8)
[2022-07-21 18:45] LABS: ALKALINE PHOSPHATASE 56 U/L (45-117); BUN 16 mg/dl (7-24); CHLORIDE 112 mmol/L (98-107); CREATININE 0.75 mg/dL (0.55-1.02); LIPASE 107 U/L (73-393); SGOT/AST 15 IU/L (3-35); SGPT/ALT 49 U/L (12-78); SODIUM 140 mmol/L (136-145)
[2022-07-21 18:57] LABS: BILIRUBIN Negative (Negative); BLOOD Negative (Negative); CLARITY Clear (Clear); COLOR Yellow (Yellow); GLUCOSE Negative (Negative); KETONE Negative (Negative); LEUKO ESTERASE Negative (Negative); NITRITE Negative (Negative); PH 5.5 (4.5-8.0); UROBILINOGEN 0.2 E.U./dl (0.0-1.0)
[2022-07-21 19:15] LABS: BACTERIA 1+; EPITHELIAL CELLS 0-2; MUCOUS 1+; WBC 0-2 wbc/hpf (0-5)
[2022-07-21] MEDS ORDERED: ONDANSETRON4 MG SL (19:34)
== END 2022-07-21 19:38 | disposition home or self-care (01) ==
LOC: ED 15:48
PROVIDERS: Nurse Practitioner Family
DX: A08.4 Viral intestinal infection, unspecified (principal); Z91.030 Bee allergy status; Z91.040 Latex allergy status; Z87.891 Personal history of nicotine dependence

== ENCOUNTER 2023-04-06 17:53 | Emergency (ER) | payer OTHER ==
[~2023-04-06] VITALS: Ht 157.4 cm
[~2023-04-06 17:53] MED LIST changes: +ONDANSETRON4 MG SL
[2023-04-06 18:21] VITALS: BP 90/59
[2023-04-06 18:54] LABS: BASO # 0.1 10*3/uL (0.0-0.1); BASO % 0.8 % (0.0-1.0); EOS # 0.2 10*3/uL (0.0-0.4); EOS % 2.9 % (1.0-4.0); HEMATOCRIT 39.4 % (37.0-47.0); LYMPH # 2.6 10*3/uL (1.3-4.4); LYMPH % 35.9 % (27.0-41.0); MEAN CORPUSCULAR HGB CONC 32.2 g/dl (33.0-37.0); MEAN PLATELET VOLUME 9.4 fl (9.6-12.3); MONO # 0.5 10*3/uL (0.1-1.0); MONO % 7.2 % (3.0-9.0); NEUT # 3.9 10*3/uL (2.3-7.9); NEUT % 52.8 % (47.0-73.0); PLATELET COUNT AUTOMATED 415 10*3/uL (130-400); RED BLOOD COUNT 4.53 10*6/uL (4.10-5.10); RED CELL DISTRI WIDTH 13.9 % (0-14.5); WHITE BLOOD COUNT 7.4 10*3/uL (4.8-10.8)
[2023-04-06 19:18] LABS: ALKALINE PHOSPHATASE 59 U/L (46-116); BUN 10 mg/dl (9-23); CHLORIDE 109 mmol/L (98-107); POTASSIUM 3.7 mmol/L (3.4-5.1); SGPT/ALT 12 U/L (10-49); TOTAL PROTEIN 7.1 gm/dL (6.0-8.0)
[2023-04-06 19:18] LABS: BILIRUBIN Negative (Negative); BLOOD Negative (Negative); CLARITY Clear (Clear); COLOR Yellow (Yellow); GLUCOSE Negative (Negative); KETONE Trace (Negative); LEUKO ESTERASE Negative (Negative); NITRITE Negative (Negative); SPECIFIC GRAVITY >= 1.030 (1.001-1.030)
[2023-04-06 19:26] LABS: BACTERIA TRACE; WBC 0-2 wbc/hpf (0-5)
[2023-04-06] MEDS ORDERED: ONDANSETRON4 MG SL (19:30)
== END 2023-04-06 19:52 | disposition home or self-care (01) ==
LOC: ED 17:53
PROVIDERS: Family Medicine; Student in an Organized Health Care Education/Training Program
DX: R11.2 Nausea with vomiting, unspecified (principal); Z91.030 Bee allergy status; Z91.040 Latex allergy status; Z87.891 Personal history of nicotine dependence

== ENCOUNTER 2023-07-02 00:22 | Emergency (ER) | payer OTHER ==
[~2023-07-02] VITALS: Ht 157.4 cm; Wt 70.3 kg
[2023-07-02 00:25] VITALS: BP 133/74
== END 2023-07-02 03:39 | disposition home or self-care (01) ==
LOC: ED 00:22
DX: T24.211A Burn of second degree of right thigh, initial encounter (principal); T21.22XA Burn of second degree of abdominal wall, initial encounter; T31.0 Burns involving less than 10% of body surface; F41.9 Anxiety disorder, unspecified; F32.A Depression, unspecified; J45.909 Unspecified asthma, uncomplicated; Z91.030 Bee allergy status; Z91.040 Latex allergy status; F17.200 Nicotine dependence, unspecified, uncomplicated; X08.8XXA Exposure to other specified smoke, fire and flames, initial encounter; Y93.89 Activity, other specified; Y92.009 Unspecified place in unspecified non-institutional (private) residence as the place of occurrence of the external cause; Y99.8 Other external cause status

== ENCOUNTER → 2023-07-02 | Outpatient (CLI) | payer OTHER | END | disposition home or self-care (01) | LOC: WOUNDCARE 08:22 | PROVIDERS: ATTEND Nurse Practitioner Family | DX: T24.211A Burn of second degree of right thigh, initial encounter (principal); T21.22XA Burn of second degree of abdominal wall, initial encounter; T23.201A Burn of second degree of right hand, unspecified site, initial encounter; T23.202A Burn of second degree of left hand, unspecified site, initial encounter; T24.231A Burn of second degree of right lower leg, initial encounter; T23.331A Burn of third degree of multiple right fingers (nail), not including thumb, initial encounter; T31.0 Burns involving less than 10% of body surface; J44.9 Chronic obstructive pulmonary disease, unspecified; F41.9 Anxiety disorder, unspecified; F20.9 Schizophrenia, unspecified; F31.9 Bipolar disorder, unspecified; F17.290 Nicotine dependence, other tobacco product, uncomplicated; F12.90 Cannabis use, unspecified, uncomplicated; X08.8XXA Exposure to other specified smoke, fire and flames, initial encounter; Y93.89 Activity, other specified; Y92.89 Other specified places as the place of occurrence of the external cause; Y99.8 Other external cause status ==

== ENCOUNTER → 2023-07-10 | Outpatient (CLI) | payer OTHER ==
[~2023-07-10] MED LIST changes: +IBU800 M1 PO; +PREDNISONE50 MG PO; +SILVADENE,SSD C50 GM T; +SULFAMETHOXAZOLE-TMP PO; +XYLOCAINE 5%35.44 GM T
== END | disposition home or self-care (01) ==
LOC: WOUNDCARE 01:26
PROVIDERS: ATTEND Nurse Practitioner Family
DX: T24.211A Burn of second degree of right thigh, initial encounter (principal); T24.312A Burn of third degree of left thigh, initial encounter; T21.22XA Burn of second degree of abdominal wall, initial encounter; T23.201A Burn of second degree of right hand, unspecified site, initial encounter; T23.202A Burn of second degree of left hand, unspecified site, initial encounter; T24.231A Burn of second degree of right lower leg, initial encounter; T23.331A Burn of third degree of multiple right fingers (nail), not including thumb, initial encounter; T31.0 Burns involving less than 10% of body surface; J44.9 Chronic obstructive pulmonary disease, unspecified; F41.9 Anxiety disorder, unspecified; F20.9 Schizophrenia, unspecified; F31.9 Bipolar disorder, unspecified; F17.290 Nicotine dependence, other tobacco product, uncomplicated; X08.8XXA Exposure to other specified smoke, fire and flames, initial encounter; Y93.89 Activity, other specified; Y92.89 Other specified places as the place of occurrence of the external cause; Y99.8 Other external cause status

== ENCOUNTER 2023-07-12 00:10 | Emergency (ER) | payer OTHER ==
[~2023-07-12] VITALS: Ht 157.4 cm; Wt 68.2 kg
[~2023-07-12 00:10] MED LIST changes: -IBU800 M1 PO; -PREDNISONE50 MG PO; -SILVADENE,SSD C50 GM T; -SULFAMETHOXAZOLE-TMP PO; -XYLOCAINE 5%35.44 GM T
[2023-07-12 00:15] VITALS: BP 116/66
[2023-07-12] MEDS ORDERED: SILVADENE,SSD C50 GM T (00:16)
[2023-07-12] MEDS ORDERED: IBU800 M1 PO (00:17)
[2023-07-12] MEDS ORDERED: XYLOCAINE 5%35.44 GM T (00:17)
[2023-07-12] MEDS ORDERED: SULFAMETHOXAZOLE-TMP PO (00:17)
[2023-07-12 00:28] LABS: BASO % 0.2 % (0.0-1.0); EOS # 0.1 10*3/uL (0.0-0.4); EOS % 2.6 % (1.0-4.0); HEMATOCRIT 36.1 % (37.0-47.0); LYMPH # 0.7 10*3/uL (1.3-4.4); LYMPH % 14.7 % (27.0-41.0); MEAN CELL VOLUME 86.2 fl (81.0-99.0); MEAN CORPUSCULAR HGB 28.4 pg (27.0-31.0); MEAN PLATELET VOLUME 9.2 fl (9.6-12.3); MONO # 0.2 10*3/uL (0.1-1.0); NEUT # 3.9 10*3/uL (2.3-7.9); NEUT % 79.1 % (47.0-73.0); PLATELET COUNT AUTOMATED 259 10*3/uL (130-400); RED BLOOD COUNT 4.19 10*6/uL (4.10-5.10)
[2023-07-12 00:40] LABS: ACT PARTIAL THROMBO TIME 29.6 SECONDS (20.0-32.1); INTERNATIONAL NORM RATIO 1.1 (2.0-3.5)
[2023-07-12 00:50] LABS: ALKALINE PHOSPHATASE 53 U/L (46-116); BUN 10 mg/dl (9-23); CHLORIDE 109 mmol/L (98-107); LIPASE 24 U/L (12-53); POTASSIUM 3.6 mmol/L (3.4-5.1); SGPT/ALT 10 U/L (10-49); TOTAL PROTEIN 6.1 gm/dL (6.0-8.0)
[2023-07-12] MEDS ORDERED: PREDNISONE50 MG PO (01:12)
== END 2023-07-12 01:32 | disposition home or self-care (01) ==
LOC: ED 00:10
PROVIDERS: Internal Medicine
DX: L50.9 Urticaria, unspecified (principal); T78.1XXA Other adverse food reactions, not elsewhere classified, initial encounter; F41.9 Anxiety disorder, unspecified; F32.A Depression, unspecified; J45.909 Unspecified asthma, uncomplicated; Z88.2 Allergy status to sulfonamides; Z88.8 Allergy status to other drugs, medicaments and biological substances; Z91.030 Bee allergy status; Z91.040 Latex allergy status; Z98.890 Other specified postprocedural states; F17.200 Nicotine dependence, unspecified, uncomplicated; X58.XXXA Exposure to other specified factors, initial encounter

== ENCOUNTER → 2023-07-16 | Outpatient (CLI) | payer OTHER ==
[~2023-07-16] MED LIST changes: +IBU800 M1 PO; +PREDNISONE50 MG PO; +SILVADENE,SSD C50 GM T; +SULFAMETHOXAZOLE-TMP PO; +XYLOCAINE 5%35.44 GM T
== END ==
LOC: WOUNDCARE 00:58
PROVIDERS: ATTEND Nurse Practitioner Family
DX: Z53.21 Procedure and treatment not carried out due to patient leaving prior to being seen by health care provider (principal)

== ENCOUNTER → 2024-01-25 | Day surgery (SDC) | payer OTHER ==
[2024-01-21 14:06] VITALS: BP 99/64
[~2024-01-25] VITALS: Ht 152.4 cm; Wt 55.3 kg
[2024-01-25] VITALS (7 sets, daily range): BP systolic 101–112; BP diastolic 58–70
[~2024-01-25] MED LIST changes: +ACETAMINOPHEN 100 ML IV ONE; +Dexamethasone Sodium Phospha 20 MG/5 ML VIAL IV ONE; +FAMOTIDINE 20 MG in SYRINGE INFUSION 8 ML IV ONE; +FAMOTIDINE 50 ML IV ONE; +Lactated Ringer's Solution 1,000 ML IV ONE; +Lactated Ringer's Solution 1,000 ML IV SCH; +Lidocaine Hydrochloride 2% 10 ML AMP IM ONE; +Midazolam Hydrochloride 2 MG/2 ML VIAL IV ONE; +Midazolam Hydrochloride 2 MG/2 ML VIAL ONE; +Ondansetron Hydrochloride 4 MG/2 ML VIAL IV ONE; +Ondansetron Hydrochloride 4 MG/2 ML VIAL ONE; +PROPOFOL 200 MG/20 ML VIAL IV ONE; +ROCURONIUM BROMIDE 50 MG/5 ML SYRINGE IV ONE; +SEVOFLURANE 250 ML BOT INH ONE; +diphenhydrAMINE hydrochloride 50 MG/ML VIAL IV ONE
== END | disposition home or self-care (01) ==
LOC: SDC 01-21 12:00
PROVIDERS: ATTEND Obstetrics & Gynecology
DX: Z30.2 Encounter for sterilization (principal); J45.909 Unspecified asthma, uncomplicated; K21.9 Gastro-esophageal reflux disease without esophagitis; D64.9 Anemia, unspecified; F41.9 Anxiety disorder, unspecified; F31.9 Bipolar disorder, unspecified; F43.10 Post-traumatic stress disorder, unspecified; F17.210 Nicotine dependence, cigarettes, uncomplicated

== ENCOUNTER 2024-04-27 09:19 | Emergency (ER) | payer SELFPAY ==
[~2024-04-27] VITALS: Ht 154.9 cm; Wt 54.4 kg
[~2024-04-27 09:19] MED LIST changes: -ACETAMINOPHEN 100 ML IV ONE; -Dexamethasone Sodium Phospha 20 MG/5 ML VIAL IV ONE; -FAMOTIDINE 20 MG in SYRINGE INFUSION 8 ML IV ONE; -FAMOTIDINE 50 ML IV ONE; -Lactated Ringer's Solution 1,000 ML IV ONE; -Lactated Ringer's Solution 1,000 ML IV SCH; -Lidocaine Hydrochloride 2% 10 ML AMP IM ONE; -Midazolam Hydrochloride 2 MG/2 ML VIAL IV ONE; -Midazolam Hydrochloride 2 MG/2 ML VIAL ONE; -Ondansetron Hydrochloride 4 MG/2 ML VIAL IV ONE; -Ondansetron Hydrochloride 4 MG/2 ML VIAL ONE; -PROPOFOL 200 MG/20 ML VIAL IV ONE; -ROCURONIUM BROMIDE 50 MG/5 ML SYRINGE IV ONE; -SEVOFLURANE 250 ML BOT INH ONE; -diphenhydrAMINE hydrochloride 50 MG/ML VIAL IV ONE
[2024-04-27 09:34] VITALS: BP 119/69
[2024-04-27] MEDS ORDERED: Ketorolac Tromethamine 30 MG/ML VIAL IV ONE (11:50)
[2024-04-27] MEDS ORDERED: Ondansetron Hydrochloride 4 MG/2 ML VIAL IV ONE (11:50)
[2024-04-27] MEDS ORDERED: SODIUM CHLORIDE 0.9% 1,000 ML IV ONE (11:50)
[2024-04-27] MEDS ORDERED: Albuterol Sulf/Ipratropium 3 ML VIAL NEB ONE (11:55)
[2024-04-27 12:04] LABS: BASO % 0.5 % (0.0-1.0); HEMATOCRIT 36.2 % (37.0-47.0); LYMPH # 1.3 10*3/uL (1.3-4.4); LYMPH % 21.9 % (27.0-41.0); MEAN CELL VOLUME 88.5 fl (81.0-99.0); MEAN CORPUSCULAR HGB 28.9 pg (27.0-31.0); MEAN CORPUSCULAR HGB CONC 32.6 g/dl (33.0-37.0); MEAN PLATELET VOLUME 9.7 fl (9.6-12.3); MONO # 0.4 10*3/uL (0.1-1.0); MONO % 6.9 % (3.0-9.0); NEUT # 4.1 10*3/uL (2.3-7.9); NEUT % 70.4 % (47.0-73.0); PLATELET COUNT AUTOMATED 271 10*3/uL (130-400); RED BLOOD COUNT 4.09 10*6/uL (4.10-5.10); RED CELL DISTRI WIDTH 14.3 % (0-14.5); WHITE BLOOD COUNT 5.8 10*3/uL (4.8-10.8)
[2024-04-27 12:21] LABS: BILIRUBIN Negative (Negative); BLOOD Negative (Negative); CLARITY Clear (Clear); COLOR Yellow (Yellow); GLUCOSE Negative (Negative); KETONE 2+ (Negative); LEUKO ESTERASE 1+ (Negative); NITRITE Negative (Negative); PH 6.5 (4.5-8.0); SPECIFIC GRAVITY 1.025 (1.001-1.030)
[2024-04-27 12:30] LABS: ALKALINE PHOSPHATASE 62 U/L (46-116); BUN 6 mg/dl (9-23); CHLORIDE 105 mmol/L (98-107); LIPASE 29 U/L (12-53); POTASSIUM 3.3 mmol/L (3.4-5.1); SGPT/ALT 18 U/L (5-49); TOTAL PROTEIN 6.7 gm/dL (6.0-8.0)
[2024-04-27 13:16] LABS: BACTERIA 1+; MUCOUS 3+
== END 2024-04-27 14:27 | disposition home or self-care (01) ==
LOC: ED 09:19
PROVIDERS: Physician Assistant
DX: B34.9 Viral infection, unspecified (principal); Z20.822 Contact with and (suspected) exposure to COVID-19; R11.2 Nausea with vomiting, unspecified; J45.909 Unspecified asthma, uncomplicated; F17.200 Nicotine dependence, unspecified, uncomplicated; Z91.030 Bee allergy status; Z91.040 Latex allergy status; Z88.2 Allergy status to sulfonamides

== ENCOUNTER 2024-05-16 17:26 | Emergency (ER) | payer SELFPAY ==
[~2024-05-16] VITALS: Ht 152.4 cm; Wt 61.2 kg
[2024-05-16] MEDS ORDERED: Ketorolac Tromethamine 15 MG/ML VIAL IM ONE (17:50)
[2024-05-16] MEDS ORDERED: methylPREDNISolone sod succ 125 MG VIAL IM ONE (17:50)
[2024-05-16] MEDS ORDERED: CYCLOBENZAPRINE5 M3 PO (19:26)
[2024-05-16] MEDS ORDERED: Cyclobenzaprine Hydrochlorid 10 MG TAB PO ONE (19:35)
== END 2024-05-16 19:31 | disposition home or self-care (01) ==
LOC: ED 17:26
DX: M54.50 Low back pain, unspecified (principal); M79.604 Pain in right leg; M79.605 Pain in left leg; F41.9 Anxiety disorder, unspecified; F32.A Depression, unspecified; J45.909 Unspecified asthma, uncomplicated; F17.200 Nicotine dependence, unspecified, uncomplicated; Z91.030 Bee allergy status; Z91.040 Latex allergy status; Z88.2 Allergy status to sulfonamides; Z88.8 Allergy status to other drugs, medicaments and biological substances

== ENCOUNTER 2024-10-27 04:57 | Emergency (ER) | payer OTHER ==
[~2024-10-27] VITALS: Ht 154.9 cm; Wt 56.7 kg
[~2024-10-27 04:57] MED LIST changes: +CYCLOBENZAPRINE5 M3 PO
[2024-10-27 05:07] VITALS: BP 120/81
[2024-10-27] MEDS ORDERED: Ondansetron Hydrochloride 4 MG TAB SL ONE (05:10)
[2024-10-27 05:47] LABS: BUN 18 mg/dl (9-23); CHLORIDE 111 mmol/L (98-107)
[2024-10-27 06:02] LABS: BASO # 0.1 10*3/uL (0.0-0.1); BASO % 0.7 % (0.0-1.0); EOS # 0.3 10*3/uL (0.0-0.4); EOS % 3.2 % (1.0-4.0); HEMATOCRIT 36.2 % (37.0-47.0); MEAN CELL VOLUME 90.3 fl (81.0-99.0); MEAN CORPUSCULAR HGB 28.7 pg (27.0-31.0); MEAN CORPUSCULAR HGB CONC 31.8 g/dl (33.0-37.0); MEAN PLATELET VOLUME 9.9 fl (9.6-12.3); MONO # 0.7 10*3/uL (0.1-1.0); MONO % 7.3 % (3.0-9.0); NEUT # 4.9 10*3/uL (2.3-7.9); NEUT % 54.9 % (47.0-73.0); PLATELET COUNT AUTOMATED 351 10*3/uL (130-400); RED BLOOD COUNT 4.01 10*6/uL (4.10-5.10); RED CELL DISTRI WIDTH 13.8 % (0-14.5); WHITE BLOOD COUNT 8.9 10*3/uL (4.8-10.8)
[2024-10-27] MEDS ORDERED: Ketorolac Tromethamine 60 MG/2 ML VIAL IM ONE (07:00)
== END 2024-10-27 07:20 | disposition home or self-care (01) ==
LOC: ED 04:57
PROVIDERS: Internal Medicine
DX: R10.31 Right lower quadrant pain (principal); F41.9 Anxiety disorder, unspecified; F32.A Depression, unspecified; J45.909 Unspecified asthma, uncomplicated; F17.200 Nicotine dependence, unspecified, uncomplicated; Z91.030 Bee allergy status; Z91.040 Latex allergy status; Z88.2 Allergy status to sulfonamides; Z88.8 Allergy status to other drugs, medicaments and biological substances

== ENCOUNTER 2025-02-07 20:36 | Emergency (ER) | payer OTHER ==
[~2025-02-07] VITALS: Ht 154.9 cm; Wt 54.4 kg
[2025-02-07 20:42] VITALS: BP 121/76
[2025-02-07 20:59] LABS: BASO # 0.1 10*3/uL (0.0-0.1); BASO % 0.5 % (0.0-1.0); EOS # 0.2 10*3/uL (0.0-0.4); EOS % 2.2 % (1.0-4.0); HEMATOCRIT 40.3 % (37.0-47.0); MEAN CELL VOLUME 87.2 fl (81.0-99.0); MEAN CORPUSCULAR HGB 28.6 pg (27.0-31.0); MEAN CORPUSCULAR HGB CONC 32.8 g/dl (33.0-37.0); MEAN PLATELET VOLUME 9.6 fl (9.6-12.3); MONO # 0.5 10*3/uL (0.1-1.0); NEUT # 6.1 10*3/uL (2.3-7.9); NEUT % 63.3 % (47.0-73.0); PLATELET COUNT AUTOMATED 397 10*3/uL (130-400); RED BLOOD COUNT 4.62 10*6/uL (4.10-5.10); RED CELL DISTRI WIDTH 13.2 % (0-14.5); WHITE BLOOD COUNT 9.7 10*3/uL (4.8-10.8)
[2025-02-07 21:47] LABS: BUN 13 mg/dl (9-23); CHLORIDE 106 mmol/L (98-107); POTASSIUM 3.1 mmol/L (3.4-5.1)
[2025-02-07] MEDS ORDERED: Bacitracin Zinc 14 GM TUBE T ONE (22:10)
[2025-02-07] MEDS ORDERED: DERMABOND 1 EA APPL T ONE (22:21)
[2025-02-07] MEDS ORDERED: NAPROXEN250 MG PO (23:17)
[2025-02-07] MEDS ORDERED: METHOCARBAMOL500 M1 PO (23:17)
== END 2025-02-07 23:17 | disposition home or self-care (01) ==
LOC: ED 20:36
PROVIDERS: Internal Medicine
DX: S61.501A Unspecified open wound of right wrist, initial encounter (principal); S80.212A Abrasion, left knee, initial encounter; M54.6 Pain in thoracic spine; J45.909 Unspecified asthma, uncomplicated; F32.A Depression, unspecified; F41.9 Anxiety disorder, unspecified; Z79.899 Other long term (current) drug therapy; Z88.2 Allergy status to sulfonamides; Z88.1 Allergy status to other antibiotic agents; Z91.030 Bee allergy status; Z91.040 Latex allergy status; V89.2XXA Person injured in unspecified motor-vehicle accident, traffic, initial encounter; Y93.89 Activity, other specified; Y92.488 Other paved roadways as the place of occurrence of the external cause; Y99.8 Other external cause status

== ENCOUNTER 2025-05-08 21:32 | Emergency (ER) | payer OTHER ==
[~2025-05-08] VITALS: Ht 154.9 cm; Wt 56.7 kg
[~2025-05-08 21:32] MED LIST changes: +METHOCARBAMOL500 M1 PO; +NAPROXEN250 MG PO
[2025-05-08] MEDS ORDERED: SODIUM CHLORIDE 0.9% 1,000 ML IV ONE (22:55)
[2025-05-08] MEDS ORDERED: Ondansetron Hydrochloride 4 MG/2 ML VIAL IV ONE (22:55)
[2025-05-08] MEDS ORDERED: MORPHINE Sulfate 2 MG/ML SYR IV ONE (22:55)
[2025-05-08 23:07] LABS: BASO # 0.1 10*3/uL (0.0-0.1); BASO % 0.8 % (0.0-1.0); EOS # 0.5 10*3/uL (0.0-0.4); EOS % 4.5 % (1.0-4.0); HEMATOCRIT 42.8 % (37.0-47.0); MEAN CELL VOLUME 89.7 fl (81.0-99.0); MEAN CORPUSCULAR HGB 28.3 pg (27.0-31.0); MEAN CORPUSCULAR HGB CONC 31.5 g/dl (33.0-37.0); MEAN PLATELET VOLUME 9.4 fl (9.6-12.3); MONO # 0.6 10*3/uL (0.1-1.0); MONO % 5.4 % (3.0-9.0); NEUT # 7.6 10*3/uL (2.3-7.9); NEUT % 68.2 % (47.0-73.0); PLATELET COUNT AUTOMATED 418 10*3/uL (130-400); RED BLOOD COUNT 4.77 10*6/uL (4.10-5.10); RED CELL DISTRI WIDTH 13.3 % (0-14.5); WHITE BLOOD COUNT 11.2 10*3/uL (4.8-10.8)
[2025-05-08 23:31] LABS: BILIRUBIN Negative (Negative); BLOOD Negative (Negative); CLARITY Cloudy (Clear); COLOR Yellow (Yellow); GLUCOSE Negative (Negative); KETONE Trace (Negative); LEUKO ESTERASE 2+ (Negative); NITRITE Negative (Negative); PH 5.5 (4.5-8.0)
[2025-05-08 23:42] LABS: ALKALINE PHOSPHATASE 70 U/L (46-116); BUN 12 mg/dl (9-23); CHLORIDE 103 mmol/L (98-107); POTASSIUM 4.4 mmol/L (3.4-5.1); SGPT/ALT 9 U/L (5-49); TOTAL PROTEIN 7.6 gm/dL (6.0-8.0)
[2025-05-08 23:45] LABS: BACTERIA 2+; EPITHELIAL CELLS 41-50; WBC 31-40 wbc/hpf (0-5)
[2025-05-09 01:25] VITALS: BP 114/70
[2025-05-09] MEDS ORDERED: REGLAN10 M1 PO (02:20)
[2025-05-09] MEDS ORDERED: Ondansetron4 MG PO (02:20)
[2025-05-09] MEDS ORDERED: MACROBID100 M1 PO (02:20)
== END 2025-05-09 02:33 | disposition home or self-care (01) ==
LOC: ED 21:32
PROVIDERS: Emergency Medicine
DX: A08.4 Viral intestinal infection, unspecified (principal); N39.0 Urinary tract infection, site not specified; J45.909 Unspecified asthma, uncomplicated; F32.A Depression, unspecified; F41.9 Anxiety disorder, unspecified; F17.200 Nicotine dependence, unspecified, uncomplicated; Z79.899 Other long term (current) drug therapy; Z88.1 Allergy status to other antibiotic agents; Z88.2 Allergy status to sulfonamides; Z91.030 Bee allergy status; Z91.040 Latex allergy status

== ENCOUNTER 2025-07-16 13:46 | Emergency (ER) | payer OTHER ==
[~2025-07-16] VITALS: Ht 152.4 cm; Wt 56.7 kg
[~2025-07-16 13:46] MED LIST changes: +Ondansetron4 MG PO; +REGLAN10 M1 PO
[2025-07-16 13:55] VITALS: BP 112/74
[2025-07-16] MEDS ORDERED: Ondansetron Hydrochloride 4 MG/2 ML VIAL IV ONE (14:20)
[2025-07-16] MEDS ORDERED: SODIUM CHLORIDE 0.45% 1,000 ML IV ONE (14:20)
[2025-07-16 14:29] LABS: BASO # 0.1 10*3/uL (0.0-0.1); BASO % 0.9 % (0.0-1.0); EOS # 0.4 10*3/uL (0.0-0.4); EOS % 5.5 % (1.0-4.0); MEAN CELL VOLUME 89.0 fl (81.0-99.0); MEAN CORPUSCULAR HGB 28.3 pg (27.0-31.0); MEAN PLATELET VOLUME 9.4 fl (9.6-12.3); MONO # 0.6 10*3/uL (0.1-1.0); MONO % 7.4 % (3.0-9.0); NEUT # 4.0 10*3/uL (2.3-7.9); NEUT % 53.9 % (47.0-73.0); NUCLEATED RED BLOOD CELL 0.0 % (0.0-0.0); NUCLEATED RED BLOOD CELL 0.0 10*3/uL (0.0-0.0); PLATELET COUNT AUTOMATED 334 10*3/uL (130-400); RED CELL DISTRI WIDTH 13.7 % (0-14.5)
[2025-07-16 14:41] LABS: BILIRUBIN Negative (Negative); BLOOD Negative (Negative); CLARITY Clear (Clear); COLOR Dark Yellow (Yellow); KETONE Trace (Negative); LEUKO ESTERASE 1+ (Negative); NITRITE Negative (Negative); PH 5.5 (4.5-8.0); SPECIFIC GRAVITY >= 1.030 (1.001-1.030); UROBILINOGEN 1.0 E.U./dl (0.0-1.0)
[2025-07-16] MEDS ORDERED: SODIUM CHLORIDE 0.9% 1,000 ML IV ONE (14:50)
[2025-07-16 14:51] LABS: BACTERIA 1+; MUCOUS 3+
[2025-07-16 15:00] LABS: BUN 15 mg/dl (9-23)
[2025-07-16 15:03] LABS: B-hCG (QUALITATIVE) NEGATIVE (NEGATIVE)
[2025-07-16] MEDS ORDERED: MACROBID100 M1 PO (15:55)
[2025-07-16] MEDS ORDERED: Nitrofurantoin Monohydrate/N 100 MG CAP PO ONE (16:25)
[2025-07-16] MEDS ORDERED: Ondansetron4 MG PO (17:13)
== END 2025-07-16 17:02 | disposition home or self-care (01) ==
LOC: ED 13:46
DX: N39.0 Urinary tract infection, site not specified (principal); E86.0 Dehydration; R51.9 Headache, unspecified; R12 Heartburn; R35.0 Frequency of micturition; R11.2 Nausea with vomiting, unspecified; F17.200 Nicotine dependence, unspecified, uncomplicated; Z87.42 Personal history of other diseases of the female genital tract; Z91.030 Bee allergy status; Z91.040 Latex allergy status; Z88.2 Allergy status to sulfonamides; Z79.899 Other long term (current) drug therapy

== ENCOUNTER → 2025-08-11 | Outpatient (CLI) | payer OTHER ==
[2025-08-11 12:36] LABS: BASO # 0.1 10*3/uL (0.0-0.1); BASO % 1.2 % (0.0-1.0); EOS # 0.4 10*3/uL (0.0-0.4); EOS % 7.3 % (1.0-4.0); MEAN CELL VOLUME 90.5 fl (81.0-99.0); MEAN CORPUSCULAR HGB 28.4 pg (27.0-31.0); MEAN PLATELET VOLUME 9.7 fl (9.6-12.3); MONO # 0.4 10*3/uL (0.1-1.0); MONO % 6.6 % (3.0-9.0); NEUT # 2.7 10*3/uL (2.3-7.9); NEUT % 47.3 % (47.0-73.0); NUCLEATED RED BLOOD CELL 0.0 % (0.0-0.0); NUCLEATED RED BLOOD CELL 0.0 10*3/uL (0.0-0.0); PLATELET COUNT AUTOMATED 259 10*3/uL (130-400); RED CELL DISTRI WIDTH 13.8 % (0-14.5)
[2025-08-11 13:18] LABS: BUN 13 mg/dl (9-23); SGPT/ALT 15 U/L (5-49)
== END | disposition home or self-care (01) ==
LOC: LAB 12:01
PROVIDERS: ATTEND Family Medicine
DX: R10.9 Unspecified abdominal pain (principal)